=== PATIENT | female | born 1985 | race Caucasian/White ===

== ENCOUNTER 2016-07-01 12:14 | Emergency (ER) | payer MEDICAID ==
[~2016-07-01] VITALS: Ht 162.6 cm; Wt 93.0 kg
[2016-07-01 13:54] LABS: KETONES,URINE Negative (NEGATIVE); LEUKOCYTE ESTERASE ,URINE Negative (NEGATIVE); PH,URINE 8.5 (5.0-8.0)
[2016-07-01 13:55] LABS: ADD UA MICROSCOPIC YES
[2016-07-01 14:02] LABS: ADD URINE CULTURE NO; RBC,URINE 21-50 /HPF (0-2)
[2016-07-01 14:31] LABS: BASOPHILS % (AUTO) 0.4 % (0.0-2.0); DIFF TOTAL % 100 %; EOSINOPHILS # (AUTO) 0.1 /CMM (0.0-0.7); EOSINOPHILS % (AUTO) 1.1 % (0.0-6.0); HEMATOCRIT 34 % (33-45); HEMOGLOBIN 11.2 g/dL (11.5-14.8); LYMPHOCYTES # (AUTO) 1.3 /CMM (0.8-4.8); LYMPHOCYTES % (AUTO) 27.2 % (20.0-44.0); MEAN CORPUSCULAR HEMOGLOBIN 27 PG (26.0-33.0); MEAN CORPUSCULAR HGB CONC 33 g/dl (31.0-36.0); MEAN CORPUSCULAR VOLUME 82 fL (82-100); MONOCYTES # (AUTO) 0.4 /CMM (0.1-1.30); MONOCYTES % (AUTO) 7.5 % (2.0-12.0); NEUTROPHILS % (AUTO) 63.8 % (43.0-81.0); PLATELET COUNT (AUTO) 266 /CMM (150-450); RED BLOOD CELL COUNT(AUTO) 4.19 MIL/uL (4.0-5.2); WHITE BLOOD COUNT (AUTO) 4.8 K/uL (4.3-11.0)
[2016-07-01 14:41] LABS: CALCIUM, SERUM 8.7 mg/dL (8.5-10.1); CREATININE 0.7 mg/dL (0.6-1.3); POTASSIUM 4.2 mmol/L (3.5-5.1)
[2016-07-01 14:49] LABS: INR 1.02 (0.87-1.13); PROTHROMBIN TIME 10.7 SECS (9.5-12.7)
[2016-07-01 16:02] VITALS: BP 142/67
== END 2016-07-01 16:02 | disposition home or self-care (01) ==
LOC: ER 12:18
DX: O20.0 Threatened abortion (principal)
CPT/HCPCS: 36415; 76856; 80048; 81001; 84702; 85025; 85730; 99285; A4606; Z7610; 81000-TC

== ENCOUNTER 2017-09-13 07:31 | Emergency (ER) | payer BC, MEDICAID ==
[~2017-09-13] VITALS: Ht 160 cm; Wt 96.2 kg
[2017-09-13 07:31] VITALS: BP 144/88
== END 2017-09-13 08:05 | disposition home or self-care (01) ==
LOC: ER 07:34
DX: M54.5 Low back pain (principal); W01.0XXA Fall on same level from slipping, tripping and stumbling without subsequent striking against object, initial encounter; Y93.89 Activity, other specified; Y92.89 Other specified places as the place of occurrence of the external cause; Y99.8 Other external cause status
CPT/HCPCS: 99283; A4606; Z7610

== ENCOUNTER 2022-11-13 09:41 | Emergency (ER) | payer MEDICAID ==
[~2022-11-13] VITALS: Ht 160 cm; Wt 99.8 kg
[2022-11-13] MEDS ORDERED: IBUP-1955 PO (10:23)
[2022-11-13] MEDS ORDERED: AMOX-430 PO (10:23)
[2022-11-13] MEDS ORDERED: dexaMETHasone SOD PHOSPHATE 10 MG/ML VIAL IV ONE (10:30)
[2022-11-13] MEDS ORDERED: KETOROLAC TROMETHAMINE INJ 30 MG/ML VIAL IM ONE (10:30)
[2022-11-13] MEDS ORDERED: KETOROLAC TROMETHAMINE 15 MG/ML VIAL ONE (10:30)
[2022-11-13] MEDS ORDERED: dexaMETHasone SOD PHOSPHATE 4 MG/ML VIAL ONE (10:31)
[2022-11-13 11:22] VITALS: BP 131/68; TEMP 98.1; O2SAT 98
== END 2022-11-13 11:22 | disposition home or self-care (01) ==
LOC: ER 09:45
DX: J02.9 Acute pharyngitis, unspecified (principal)
CPT/HCPCS: 99283; 96372; 87880; J1100; J1885; 86403-TC